=== PATIENT | female | born 1990 | race Caucasian/White ===

== ENCOUNTER 2020-09-02 20:00 | Emergency (ER) | payer MEDICAID ==
[~2020-09-02] VITALS: Ht 157.5 cm; Wt 59.0 kg
[2020-09-02 20:16] VITALS: BP 119/68
--- NOTE | 2020-09-02 20:18 | NUR ---
to lobby a/w bed ambulatory
--- NOTE | 2020-09-02 20:50 | NUR ---
29 Y/O FEMALE PRESENTS TO THE ED WITH C/O LEFT EAR PAIN THAT STARTED 8 DAYS. PAIN IS AT A 9/10 THAT PULSATES AND COMES AND GOES. PATIENT REPORTS INABILITY TO HEAR OUT OF LEFT EAR. PATIENT REPORTS BLOODY DISCHARGE. PATIENT TOOK NAPROXEN AND IS CURRENTLY . EAR HAS SOME SWELLING AND WARM TO THE TOUCH. NO DISCHARGE NOTED. PMH: GESTATIONAL DIABETES ALLERGIES: NKA
--- NOTE | 2020-09-02 21:05 | NUR ---
DR. HILLS AT BEDSIDE EXAMINING PATIENT
[2020-09-02] MEDS ORDERED: AMOX875T3 PO (21:13)
[2020-09-02] MEDS ORDERED: CIPR7.5D2 OT (21:15)
[2020-09-02 21:40] VITALS: BP 119/68
--- NOTE | 2020-09-02 21:40 | NUR ---
Patient discharged with v/s stable. Written and verbal after care instructions given and explained. Patient alert, oriented and verbalized understanding of instructions. Ambulatory with steady gait. All questions addressed prior to discharge. ID band removed. Patient advised to follow up with PMD. Rx of AMOXICILLIN AND CIPROFLOX-DEXAMETH OTIC SUSP given. Patient educated on indication of medication including possible reaction and side effects. Opportunity to ask questions provided and answered.
== END 2020-09-02 21:40 | disposition home or self-care (01) ==
LOC: MED 20:00
DX: H65.192 Other acute nonsuppurative otitis media, left ear (principal); Z86.32 Personal history of gestational diabetes; Z79.899 Other long term (current) drug therapy
CPT/HCPCS: 99283

== ENCOUNTER 2020-09-15 18:06 | Emergency (ER) | payer MEDICAID ==
[~2020-09-15] VITALS: Ht 160 cm; Wt 63.0 kg
[~2020-09-15 18:06] MED LIST: AMOX875T3 PO; CIPR7.5D2 OT
[2020-09-15 18:12] VITALS: BP 110/75
[2020-09-15] MEDS ORDERED: KETOROLAC 30 MG/ML VIAL IM ONE (19:20)
[2020-09-15] MEDS ORDERED: IBUP-2213 PO (20:40)
[2020-09-15 20:50] VITALS: BP 110/75
== END 2020-09-15 20:50 | disposition home or self-care (01) ==
LOC: MED 18:06
DX: R51.9 Headache, unspecified (principal); M26.602 Left temporomandibular joint disorder, unspecified; M54.2 Cervicalgia; H53.9 Unspecified visual disturbance
CPT/HCPCS: 70450; 81002; 81025; 96372; 99284; J1885

== ENCOUNTER 2021-04-05 19:47 | Emergency (ER) | payer MEDICAID ==
[~2021-04-05] VITALS: Ht 157.5 cm; Wt 58.1 kg
[~2021-04-05 19:47] MED LIST changes: +IBUP-2213 PO
[2021-04-05 19:55] VITALS: BP 114/88
--- NOTE | 2021-04-05 21:30 | NUR ---
Dr. Loyola examining patient.
[2021-04-05] MEDS ORDERED: CIPR7.5S LEFT EAR (21:44)
[2021-04-05] MEDS ORDERED: AMOX-1000 PO (21:44)
--- NOTE | 2021-04-05 21:55 | NUR ---
PT TAKEN TO BED #12
[2021-04-05 22:11] LABS: BASOPHILS % (AUTO) 0.2 % (0.0-2.0); EOSINOPHILS # (AUTO) 0.2 K/uL (0-0.4); EOSINOPHILS % (AUTO) 2.6 % (0.0-4.0); HEMATOCRIT 39.9 % (36-48); HEMOGLOBIN 13.5 g/dL (12.0-16.0); LYMPHOCYTES # (AUTO) 2.3 K/uL (2.5-16.5); LYMPHOCYTES % (AUTO) 38.3 % (20.5-51.1); MEAN CORPUSCULAR HEMOGLOBIN 29 pg (27-31); MEAN CORPUSCULAR HGB CONC 34 g/dL (33-37); MEAN CORPUSCULAR VOLUME 84.7 fL (80-94); MONOCYTES # (AUTO) 0.3 K/uL (0.8-1.0); MONOCYTES % (AUTO) 5.6 % (1.7-9.3); NEUTROPHILS # (AUTO) 3.2 K/uL (1.8-7.7); NEUTROPHILS % (AUTO) 53.3 % (42.2-75.2); PLATELET COUNT (AUTO) 122 K/uL (140-450); RED BLOOD CELL COUNT(AUTO) 4.71 MIL/uL (4.20-5.40); RED CELL DISTRIBUTION WIDTH 13.2 % (11.6-13.7)
--- NOTE | 2021-04-05 22:18 | NUR ---
INTERPRETOR GEE [id number] WAS USED TO OBTAIN CT WITH CONTRAST CONSENT
[2021-04-05 22:31] LABS: ANION GAP 13.7 (8-16); CARBON DIOXIDE 27.9 mmol/L (21-32); CREATININE 0.8 mg/dL (0.6-1.3); POTASSIUM 3.6 mmol/L (3.5-5.1)
--- NOTE | 2021-04-05 23:51 | NUR ---
PT TAKEN TO CT
--- NOTE | 2021-04-05 23:51 | NUR ---
PATIENT TAKEN TO CT VIA WHEELCHAIR
--- NOTE | 2021-04-05 23:59 | NUR ---
PT RETURN FROM CT
--- NOTE | 2021-04-06 01:03 | NUR ---
Dr. Walters examining patient.
[2021-04-06] MEDS ORDERED: MORPHINE SULFATE 4 MG/ML SYR IVP ONE (01:10)
[2021-04-06 02:00] VITALS: BP 110/70
--- NOTE | 2021-04-06 02:00 | NUR ---
Patient discharged with v/s stable. Written and verbal after care instructions given and explained. Patient alert, oriented and verbalized understanding of instructions. Ambulatory with steady gait. All questions addressed prior to discharge. ID band removed. Patient advised to follow up with PMD. Rx of AUGMENTIN, CIPROFLOXACIN, NORCO 5-325MG, MOTRIN 600MG. given. Patient educated on indication of medication including possible reaction and side effects. Opportunity to ask questions provided and answered. IV removed, catheter intact and site benign. Applied folded 4x4 gauze and tape to stop bleeding. PATIENT STATES WILL RECEIVE RIDE FROM FAMILY MEMBER.
[2021-04-06] MEDS ORDERED: IBUP-2213 PO (02:03)
[2021-04-06] MEDS ORDERED: ACET-8386 PO (02:03)
== END 2021-04-06 02:00 | disposition home or self-care (01) ==
LOC: MED 19:47
DX: H60.92 Unspecified otitis externa, left ear (principal); R51.9 Headache, unspecified; J02.9 Acute pharyngitis, unspecified; Z79.899 Other long term (current) drug therapy
CPT/HCPCS: 36415; 70460; 80048; 84702; 85025; 85651; 86140; 96374; 99285; J2270; Q9967; 99283

== ENCOUNTER 2021-09-26 14:18 | Emergency (ER) | payer MEDICAID ==
[~2021-09-26] VITALS: Ht 157.5 cm; Wt 59.5 kg
[~2021-09-26 14:18] MED LIST changes: +ACET-8386 PO; +AMOX-1000 PO; +CIPR7.5S LEFT EAR
[2021-09-26 14:25] VITALS: BP 113/76
--- NOTE | 2021-09-26 14:31 | NUR ---
PT AMBULATED TO ER BED 11 WITH A STEADY GAIT.
--- NOTE | 2021-09-26 14:44 | NUR ---
31 Y/O FEMALE C/O CHEST PAIN 12/27 DESCRIBES PRESSURE RADIATES TO LEFT ARM X3DAYS. DENIES FEVER/CHILLS. DENIES N/V/D. DENIES PMH NKA
--- NOTE | 2021-09-26 15:10 | NUR ---
DR. BACON AT PT BEDSIDE FOR FURTHER EVAUATION.
--- NOTE | 2021-09-26 15:21 | NUR ---
HUMAN RESOURCES OFFICE MANAGER AT PT BEDSIDE.
[2021-09-26 15:34] LABS: BASOPHILS % (AUTO) 0.3 % (0.0-2.0); EOSINOPHILS # (AUTO) 0.1 K/uL (0-0.4); EOSINOPHILS % (AUTO) 1.3 % (0.0-4.0); HEMATOCRIT 39.6 % (36-48); HEMOGLOBIN 13.5 g/dL (12.0-16.0); LYMPHOCYTES # (AUTO) 1.6 K/uL (2.5-16.5); LYMPHOCYTES % (AUTO) 28.3 % (20.5-51.1); MEAN CORPUSCULAR HEMOGLOBIN 30 pg (27-31); MEAN CORPUSCULAR HGB CONC 34 g/dL (33-37); MONOCYTES # (AUTO) 0.3 K/uL (0.8-1.0); MONOCYTES % (AUTO) 5.3 % (1.7-9.3); NEUTROPHILS # (AUTO) 3.7 K/uL (1.8-7.7); NEUTROPHILS % (AUTO) 64.8 % (42.2-75.2); PLATELET COUNT (AUTO) 96 K/uL (140-450); RED BLOOD CELL COUNT(AUTO) 4.55 MIL/uL (4.20-5.40); WHITE BLOOD COUNT (AUTO) 5.7 K/uL (4.8-10.8)
[2021-09-26 15:52] LABS: ANION GAP 11.7 (8-16); CARBON DIOXIDE 29.1 mmol/L (21-32); CREATININE 0.6 mg/dL (0.6-1.3); MAGNESIUM 2.2 mg/dL (1.8-2.4); PHOSPHORUS 2.8 mg/dL (2.5-4.9); POTASSIUM 3.8 mmol/L (3.5-5.1)
[2021-09-26 16:43] LABS: APPEARANCE,URINE CLEAR (CLEAR); BILIRUBIN,URINE NEGATIVE (NEGATIVE); BLOOD, URINE NEGATIVE (NEGATIVE); LEUKOCYTE ESTERASE ,URINE 1+ (NEGATIVE); NITRITE, URINE NEGATIVE (NEGATIVE); UGLUCOSE NEGATIVE (NEGATIVE)
[2021-09-26 16:44] LABS: COLOR,URINE STRAW (YELLOW)
--- NOTE | 2021-09-26 16:44 | NUR ---
PT SITTING IN BED, HOB ELEVATED, WILL CONTINUE TO MONITOR.
[2021-09-26 16:56] LABS: RBC,URINE NONE SEEN /HPF (0-5); WBC,URINE 0-5 /HPF (0-5)
[2021-09-26 17:15] VITALS: BP 116/74
--- NOTE | 2021-09-26 17:16 | NUR ---
Patient discharged with v/s stable. Written and verbal after care instructions given FOR NONSPECIFIC CHEST PAIN and explained. Patient verbalized understanding. Ambulatory with steady gait. All questions addressed prior to discharge. Advised to follow up with PMD.
== END 2021-09-26 17:15 | disposition home or self-care (01) ==
LOC: MED 14:18
DX: R00.2 Palpitations (principal); R07.9 Chest pain, unspecified; R06.02 Shortness of breath; Z79.899 Other long term (current) drug therapy
CPT/HCPCS: 36415; 80053; 81001; 81025; 83735; 84100; 85025; 87086; 93005; 99284

== ENCOUNTER 2022-03-01 18:28 | Emergency (ER) | payer MEDICAID ==
[~2022-03-01] VITALS: Ht 157.5 cm; Wt 60.8 kg
[2022-03-01 18:40] VITALS: BP 138/81
--- NOTE | 2022-03-01 19:03 | NUR ---
DEVYN Mitchell evaluating patient at bedside.
--- NOTE | 2022-03-01 19:10 | NUR ---
31YR OLD FEMALE BIB SELF C/O HEADACHE AND FACIAL NUMBNESS X3DAYS. PT STATES SHE IS ALSO DIZZY FOR X3DAYS. DENIES FEVER V/D OR CP SOB. PT IS IRISH SPEAKING A&OX4. SKIN WARM DRY AND INTACT . RESP EVEN AND UNLABORED. NKDA NO MED HX
--- NOTE | 2022-03-01 19:10 | NUR ---
Report given to BEST Acotsa for transfer of care.
[2022-03-01] MEDS ORDERED: PRED20TA5 PO (19:12)
[2022-03-01] MEDS ORDERED: PEG15DRO10 OP (19:12)
[2022-03-01] MEDS ORDERED: MINE1OIN OP (19:12)
--- NOTE | 2022-03-01 19:20 | NUR ---
PT REFUSING MEDS
[2022-03-01] MEDS ORDERED: ACETAMINOPHEN 325 MG TAB PO ONE (19:30)
--- NOTE | 2022-03-01 19:40 | NUR ---
PT REFUSED TO SIGN DC PAPERWORK OR TAKE DC AFTER CARE PAPERWORK/WORK NOTE
--- NOTE | 2022-03-01 19:45 | NUR ---
The patient's care was reviewed and supervised by Zayda Maldonado RN.
== END 2022-03-01 19:40 | disposition home or self-care (01) ==
LOC: MED 18:28
DX: G51.0 Bell's palsy (principal); R42 Dizziness and giddiness; E11.9 Type 2 diabetes mellitus without complications; Z79.899 Other long term (current) drug therapy
CPT/HCPCS: 36415; 99283; G0480; 99281

== ENCOUNTER 2022-04-28 23:39 | Inpatient (IN) | payer MEDICAID ==
[~2022-04-28] VITALS: Ht 157.5 cm; Wt 59.0 kg
[~2022-04-28 23:39] MED LIST changes: +MINE1OIN OP; +PEG15DRO10 OP; +PRED20TA5 PO
[2022-04-29] VITALS: BP 115/67
--- NOTE | 2022-04-29 00:03 | NUR ---
TO LOBBY A/W BED AMBULATORY
[2022-04-29 00:16] LABS: BILIRUBIN,URINE NEGATIVE (NEGATIVE); BLOOD, URINE TRACE-L (NEGATIVE); COLOR,URINE YELLOW (YELLOW); LEUKOCYTE ESTERASE ,URINE 1+ (NEGATIVE); NITRITE, URINE NEGATIVE (NEGATIVE); UGLUCOSE NEGATIVE (NEGATIVE)
[2022-04-29 00:37] LABS: APPEARANCE,URINE SLIGHTLY HAZY (CLEAR)
[2022-04-29 00:38] LABS: RBC,URINE 0-5 /HPF (0-5)
--- NOTE | 2022-04-29 02:40 | NUR ---
seen and examined by LOGAN
[2022-04-29] MEDS ORDERED: ONDANSETRON 4 MG/2 ML VIAL IVP ONE ×2 (02:45→11:30)
[2022-04-29] MEDS ORDERED: NACL 0.9% 1,000 ML IV SCH (02:45)
[2022-04-29 03:07] LABS: BASOPHILS % (AUTO) 0.4 % (0.0-2.0); EOSINOPHILS # (AUTO) 0.2 K/uL (0-0.4); EOSINOPHILS % (AUTO) 2.9 % (0.0-4.0); HEMATOCRIT 40.9 % (36-48); HEMOGLOBIN 13.7 g/dL (12.0-16.0); LYMPHOCYTES # (AUTO) 2.2 K/uL (2.5-16.5); LYMPHOCYTES % (AUTO) 32.3 % (20.5-51.1); MEAN CORPUSCULAR HEMOGLOBIN 29 pg (27-31); MEAN CORPUSCULAR HGB CONC 34 g/dL (33-37); MEAN CORPUSCULAR VOLUME 86.3 fL (80-94); MONOCYTES # (AUTO) 0.4 K/uL (0.8-1.0); NEUTROPHILS % (AUTO) 58.4 % (42.2-75.2); PLATELET COUNT (AUTO) 115 K/uL (140-450); RED BLOOD CELL COUNT(AUTO) 4.74 MIL/uL (4.20-5.40); RED CELL DISTRIBUTION WIDTH 13.7 % (11.6-13.7); WHITE BLOOD COUNT (AUTO) 6.8 K/uL (4.8-10.8)
--- NOTE | 2022-04-29 03:08 | NUR ---
PT TAKEN TO RADIOLOGY
--- NOTE | 2022-04-29 03:31 | NUR ---
PATIENT STATED 10/10 ABD PAIN. MEDICATED PER ORDERS. TOLERATED WELL.
[2022-04-29 03:35] LABS: ANION GAP 11.7 (8-16); CARBON DIOXIDE 27.1 mmol/L (21-32); CREATININE 0.6 mg/dL (0.6-1.3); POTASSIUM 3.8 mmol/L (3.5-5.1); TOTAL BILIRUBIN 0.7 mg/dL (0.0-1.0)
[2022-04-29] MEDS ORDERED: MORPHINE SULFATE 4 MG/ML SYR IVP ONE ×2 (03:40→11:30)
[2022-04-29] MEDS ORDERED: KETOROLAC 15 MG/ML VIAL IVP ONE (03:40)
--- NOTE | 2022-04-29 04:05 | NUR ---
PT RETURN FROM ULTRASOUND
--- NOTE | 2022-04-29 04:34 | NUR ---
PT TAKEN TO BED 2
--- NOTE | 2022-04-29 04:35 | NUR ---
PATIENT PLACED ON BEDSIDE MONITOR. BED LOW AND LOCKED. SIDE RAILS X1 FOR SAFETY. CALL LIGHT IN REACH
--- NOTE | 2022-04-29 05:07 | NUR ---
PATIENT STATED THAT MEDICATION HELPED. DENIES PAIN AT THIS TIME.
--- NOTE | 2022-04-29 05:18 | NUR ---
ERMD AT BEDSIDE
[2022-04-29] MEDS ORDERED: FAMOTIDINE 20 MG/2 ML VIAL IVP ONE (05:20)
[2022-04-29] MEDS ORDERED: DICYCLOMINE 10 MG CAP PO ONE (05:20)
--- NOTE | 2022-04-29 05:34 | NUR ---
PATIENT MEDICATED PER ORDERS. TOLERATED WELL.
--- NOTE | 2022-04-29 06:42 | NUR ---
PATIENT SITTING UP IN BED. VSS. DOESNT APPEAR TO BE IN DISTRESS. BED LOW AND LOCKED. SIDE RAILS UP X1 FOR SAFETY. CALL LIGHT IN REACH. ALL NEEDS MET.
--- NOTE | 2022-04-29 07:18 | NUR ---
Received report from FOREST Huynh. Assumed care at this time.
--- NOTE | 2022-04-29 07:18 | NUR ---
REPORT GIVEN TO FOREST ROLAND. TRANSFER OF CARE.
--- NOTE | 2022-04-29 11:19 | NUR ---
PT LAYING IN BED ASLEEP. NO ACUTE DISTRESS NOTED, V/S NOTED, WILL CONTINUE TO MONITOR
[2022-04-29] MEDS ORDERED: MORPHINE SULFATE 2 MG/ML SYR IVP PRN (11:45)
[2022-04-29] MEDS ORDERED: LORazepam 2 MG/ML VIAL IVP PRN (11:45)
[2022-04-29] MEDS ORDERED: POTASSIUM CHLORIDE 10 MEQ TABER PO PRN (11:45)
[2022-04-29] MEDS ORDERED: ONDANSETRON 4 MG/2 ML VIAL IVP PRN (11:45)
[2022-04-29] MEDS ORDERED: DOCUSATE SODIUM 100 MG GELCAP PO PRN (11:45)
[2022-04-29] MEDS ORDERED: ACETAMINOPHEN 325 MG TAB PO PRN (11:45)
[2022-04-29] MEDS ORDERED: MAG SULF 2000 MG/WATER PREMIX 50 ML IV PRN (11:45)
[2022-04-29] MEDS ORDERED: ZOLPIDEM 5 MG TAB PO PRN (12:05)
[2022-04-29] MEDS ORDERED: cefTRIAXone 1,000 MG VIAL ONE (12:07)
--- NOTE | 2022-04-29 19:11 | NUR ---
Received report from FOREST Baldwin and continue care of patient.
--- NOTE | 2022-04-29 19:48 | NUR ---
Reviewed patient's medications with welder oxyhydrogen.
--- NOTE | 2022-04-29 20:06 | NUR ---
Provided poillow and blankets as request.
--- NOTE | 2022-04-29 22:02 | NUR ---
Patient appears to be resting comfortably in bed. Vital Signs within normal limits. Respirations even and unlabored.
--- NOTE | 2022-04-29 23:40 | NUR ---
Patient reported, RLQ abdominal pain, pain rate 9/10, no nausea, no vomiting, Given pain medication as protocol.
--- NOTE | 2022-04-30 01:59 | NUR ---
Patient appears to be resting comfortably in bed. Vital Signs within normal limits. Respirations even and unlabored.
--- NOTE | 2022-04-30 03:57 | NUR ---
Patient appears to be resting comfortably in bed. Vital Signs within normal limits. Respirations even and unlabored.
--- NOTE | 2022-04-30 05:08 | NUR ---
Blood for labwork drawn by cloth trimmer hand. Patient tolerated well.
[2022-04-30 06:19] LABS: BASOPHILS % (AUTO) 0.2 % (0.0-2.0); EOSINOPHILS # (AUTO) 0.2 K/uL (0-0.4); EOSINOPHILS % (AUTO) 3.8 % (0.0-4.0); HEMATOCRIT 38.1 % (36-48); HEMOGLOBIN 12.5 g/dL (12.0-16.0); LYMPHOCYTES % (AUTO) 34.5 % (20.5-51.1); MEAN CORPUSCULAR HEMOGLOBIN 29 pg (27-31); MEAN CORPUSCULAR HGB CONC 33 g/dL (33-37); MONOCYTES # (AUTO) 0.4 K/uL (0.8-1.0); MONOCYTES % (AUTO) 7.2 % (1.7-9.3); NEUTROPHILS # (AUTO) 3.1 K/uL (1.8-7.7); NEUTROPHILS % (AUTO) 54.3 % (42.2-75.2); PLATELET COUNT (AUTO) 98 K/uL (140-450); RED BLOOD CELL COUNT(AUTO) 4.37 MIL/uL (4.20-5.40); RED CELL DISTRIBUTION WIDTH 13.4 % (11.6-13.7); WHITE BLOOD COUNT (AUTO) 5.7 K/uL (4.8-10.8)
[2022-04-30 06:55] LABS: CREATININE 0.6 mg/dL (0.6-1.3); POTASSIUM 3.9 mmol/L (3.5-5.1)
--- NOTE | 2022-04-30 07:09 | NUR ---
Given report to FOREST Baldwin and endorse care of patient.
[2022-04-30 07:26] LABS: ANION GAP 14.1 (8-16); CARBON DIOXIDE 24.8 mmol/L (21-32)
--- NOTE | 2022-04-30 08:14 | NUR ---
Patient will be admitted to care of Italo PHILLIPS. Admitted to [facility]. Will go to room 126A. Belongings list completed. Report to Selina GARG, primary nurse EVERARDO GARG.
[2022-04-30 08:15] VITALS: BP 115/67
--- NOTE | 2022-04-30 08:15 | NUR ---
PT ARRIVED VIA GURNEY TO UNIT FROM ED. RECEIVED REPORT FROM ED NURSE CARLOS FOR CONTINUITY OF CARE. PT IS IN STABLE CONDITION, AND CURRENTLY AWAKE. PT IS A/OX4, BREATHING EVEN, REGULAR, AND UNLABORED ON ROOM AIR. PT IS CONTINENT OF THE BOWELS AND BLADDER, AND AMBULATORY WITHOUT ASSISTANCE. PT SKIN IS INTACT. STUDENT MD AT THE BEDSIDE DOING H&P. PT STATED SHE HAS PAIN IN SUPRAPUBIC AREA 10/27.
[2022-04-30] MEDS ORDERED: NITR100C7 PO (09:16)
[2022-04-30] MEDS: PHENAZOPYRIDINE 100 MG TAB PO SCH ×2 (10:47→13:30)
--- NOTE | 2022-04-30 10:47 | NUR ---
MEDICATED PT WITH PRN TYLENOL AND SCHEDULED PYRIDIUM FOR SUPRAPUBIC PAIN 11/26.
[2022-04-30 12:27] VITALS: BP 115/67
--- NOTE | 2022-04-30 13:30 | NUR ---
REVIEWED AND DISCUSSED DISCHARGE PAPERWORK AND INSTRUCTIONS. PT VERBALIZED UNDERSTANDING, AND SIGNED ALL PAPERWORK. IV REMOVED AND DRESSED. PT IN STABLE CONDITION.
== END 2022-04-30 13:40 | disposition home or self-care (01) | DRG 463 ==
LOC: MED 23:39 → MMU 04-29 11:43
PROVIDERS: ADMIT Family Medicine; ATTEND Family Medicine
DX: N30.90 Cystitis, unspecified without hematuria (principal); E11.9 Type 2 diabetes mellitus without complications; Z20.822 Contact with and (suspected) exposure to COVID-19
CPT/HCPCS: 36415; 74022; 76700; 80048; 80053; 81001; 83690; 83735; 85025; 87081; 87086; 96361; 96374; 96375; 96376; 99285; J0696; J1885; J2270; J2405; J3490; J7030; J7060; Q9967

== ENCOUNTER 2022-12-17 | Emergency (ER) | payer MEDICAID ==
[~2022-12-17] VITALS: Ht 157.5 cm; Wt 54.4 kg
[~2022-12-17] MED LIST changes: -ACET-8386 PO; -AMOX-1000 PO; -AMOX875T3 PO; -CIPR7.5D2 OT; -CIPR7.5S LEFT EAR; -IBUP-2213 PO; -MINE1OIN OP; +NITR100C7 PO; -PEG15DRO10 OP; -PRED20TA5 PO
[2022-12-17 00:03] VITALS: BP 124/75; PULSE 97; RESP 16; TEMP 98.1; O2SAT 97
--- NOTE | 2022-12-17 00:15 | NUR ---
Pt BIB ALS wit c/o lower back pain radiating to Rt. Leg after having an injury from fall few hours ago. Concious. AAOx4. Denies any PMHx and Allergies. Denies hitting her head anywhere else.
--- NOTE | 2022-12-17 00:58 | NUR ---
To Restroom via wheelchair
[2022-12-17] MEDS ORDERED: KETOROLAC 30 MG/ML VIAL IM ONE (01:05)
[2022-12-17] MEDS ORDERED: LIDOCAINE 5% 1 EA PATCH TP ONE (01:05)
--- NOTE | 2022-12-17 02:25 | NUR ---
XRAY AT BEDSIDE
[2022-12-17] MEDS ORDERED: methocarbamoL 500 MG TAB PO ONE (02:55)
[2022-12-17] MEDS ORDERED: HYDROcodone/APAP 5/325 MG 1 TAB TAB PO ONE (02:55)
--- NOTE | 2022-12-17 02:55 | NUR ---
Still on pain. ERMD made aware with new orders made.
--- NOTE | 2022-12-17 03:53 | NUR ---
Pt awake on bed. Verbalized lesser pain now. 5/10 in scale.
[2022-12-17] MEDS ORDERED: LID5T TP (04:33)
[2022-12-17] MEDS ORDERED: IBUP-2213 PO (04:33)
[2022-12-17] MEDS ORDERED: CYCL-711 PO (04:33)
[2022-12-17 04:43] VITALS: BP 128/82; PULSE 73; RESP 16; TEMP 97; O2SAT 100
--- NOTE | 2022-12-17 04:43 | NUR ---
Patient discharged. Written and verbal after care instructions given and explained. Patient alert, oriented and verbalized understanding of instructions. Ambulatory with steady gait. All questions addressed prior to discharge. ID band removed. Patient advised to follow up with PMD. Rx of Flexeril, Ibuprofen and Lidoderm patch given. Patient educated on indication of medication including possible reaction and side effects. Opportunity to ask questions provided and answered.
--- NOTE | 2022-12-17 04:48 | NUR ---
unable to do the pain reassessment because the patient is dc and reassessment is not due yet for the lidocaine patch
== END 2022-12-17 04:43 | disposition home or self-care (01) ==
LOC: MED
DX: S70.01XA Contusion of right hip, initial encounter (principal); S30.0XXA Contusion of lower back and pelvis, initial encounter; Z79.899 Other long term (current) drug therapy; W01.0XXA Fall on same level from slipping, tripping and stumbling without subsequent striking against object, initial encounter; Y93.89 Activity, other specified; Y92.89 Other specified places as the place of occurrence of the external cause; Y99.0 Civilian activity done for income or pay
CPT/HCPCS: 72170; 72220; 81025; 96372; 99284; J1885; Q0092

== ENCOUNTER 2023-03-31 20:57 | Emergency (ER) | payer MEDICAID ==
[~2023-03-31] VITALS: Ht 152.4 cm; Wt 55.3 kg
[~2023-03-31 20:57] MED LIST changes: +CYCL-711 PO; +IBUP-2213 PO; +LID5T TP
[2023-03-31 21:08] VITALS: BP 121/86; PULSE 90; RESP 18; TEMP 97.5; O2SAT 96
[2023-03-31 23:46] LABS: APPEARANCE,URINE CLEAR (CLEAR); BILIRUBIN,URINE NEGATIVE (NEGATIVE); BLOOD, URINE NEGATIVE (NEGATIVE); COLOR,URINE YELLOW (YELLOW); LEUKOCYTE ESTERASE ,URINE 2+ (NEGATIVE); NITRITE, URINE NEGATIVE (NEGATIVE); PROTEIN,URINE NEGATIVE (NEGATIVE); UGLUCOSE NEGATIVE (NEGATIVE); UROBILINOGEN,URINE 0.2 EU/dL (0.2 - 1)
[2023-04-01 00:03] LABS: RBC,URINE 0 /HPF (0-5)
[2023-04-01 00:04] LABS: BACTERIA,URINE 2+ /HPF (None Seen); MUCUS,URINE None Seen /LPF (None Seen); SQUAMOUS EPITHELIAL CELL,UR 4-10 (MOD) /LPF (0-3 (FEW))
[2023-04-01] MEDS ORDERED: PHENAZOPYRIDINE 100 MG TAB PO ONE (00:20)
[2023-04-01] MEDS ORDERED: KETOROLAC 30 MG/ML VIAL IM ONE (00:20)
[2023-04-01] MEDS ORDERED: PYR100 PO (00:26)
[2023-04-01] MEDS ORDERED: CEPH-588 PO (00:26)
[2023-04-01] MEDS ORDERED: diazePAM 5 MG TAB PO ONE (01:40)
[2023-04-01 02:25] VITALS: BP 121/86; PULSE 90; RESP 18; TEMP 97.5; O2SAT 96
== END 2023-04-01 02:25 | disposition home or self-care (01) ==
LOC: MED 20:57
DX: N39.0 Urinary tract infection, site not specified (principal); Z79.899 Other long term (current) drug therapy
CPT/HCPCS: 81001; 87086; 96372; 99283; J1885